=== PATIENT | female | born 2005 | race Caucasian/White ===

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

== ENCOUNTER 2025-04-06 10:37 | Emergency (ER) | payer BC, SELFPAY ==
[2025-04-06 10:54] VITALS: BP 122/86; PULSE 87; RESP 16; TEMP 36.3; O2SAT 99
--- NOTE | 2025-04-06 11:06 | ED.URI ---
HPI - URI/Sore Throat General Chief Complaint: Upper Respiratory Infection Stated Complaint: SORE THROAT/COUGH/SINUS CONGSTION/EARS Time Seen by Provider: 04/06/25 11:02 Source: patient and RN notes reviewed Mode of arrival: ambulatory Limitations: no limitations History of Present Illness HPI Narrative: 20-year-old female patient presents today with a 2-3 day history of sore throat, nasal congestion, bilateral ear pain, dry cough. Currently rates her pain 5/10 and has been taking DayQuil and Tylenol without much relief. No history of asthma. Patient vapes occasionally. No known sick contacts. Related Data Allergies Allergy/AdvReac Type Severity Reaction Status Date / Time No Known Allergies Allergy Verified 04/06/25 10:42 [facility] Past Medical History Medical History No pertinent past medical history Surgical History Surgical History History of tonsillectomy Social History Social History Smoking status: Never smoker Alcohol intake: never Substance use: never Living arrangements: with family Comments At time of signature, I have reviewed and agree with nursing past medical, surgical, social and family history unless otherwise noted. Please see nursing chart for further information. There is no relevant family history pertinent to the presenting complaint Exam Narrative: GENERAL: Ill-appearing, well-nourished, and in no acute distress. HEAD: Normocephalic, atraumatic. EYES: EOMI. No redness or drainage. Conjunctivae normal. ENT: Mucous membranes pink and moist. Nares congested. No rhinorrhea. TMs normal bilaterally. Throat mildly erythematous without edema or exudate. Uvula midline. NECK: Normal AROM. Supple. No lymphadenopathy. CHEST: No respiratory distress. Clear to auscultation. HEART: Regular rate and rhythm. No murmur appreciated. EXTREMITIES: Normal range of motion. No edema. SKIN: Warm, dry, no rash. Capillary refill normal. Normal skin turgor. NEURO: No focal deficits. Alert and oriented x3. Gait steady. PSYCH: Normal affect. No signs of depression or anxiety. Course Course Level of Care: Express Care Visit Vital Signs Vital signs: Vital Signs Temperature 97.4 F L 04/06/25 10:54 Pulse Rate 87 04/06/25 10:54 Respiratory Rate 16 04/06/25 10:54 Blood Pressure 122/86 04/06/25 10:54 Pulse Oximetry 99 04/06/25 10:54 Temperature 97.4 F L 04/06/25 10:54 Pulse Rate 87 04/06/25 10:54 Respiratory Rate 16 04/06/25 10:54 Blood Pressure 122/86 04/06/25 10:54 Pulse Oximetry 99 04/06/25 10:54 Reviewed [facility] Narrative Medical decision making narrative: 20-year-old female patient presents today with a 2-3 day history of sore throat, nasal congestion, bilateral ear pain, dry cough. Currently rates her pain 5/10 and has been taking DayQuil and Tylenol without much relief. No history of asthma. Patient vapes occasionally. No known sick contacts. Upon exam, patient is mildly ill appearing with nasal congestion and mildly erythematous throat. COVID negative, influenza negative, rapid strep negative. Strep culture pending. Symptoms likely viral in etiology. Discussed [id number] medication use and duration of illness. No prescription medications indicated at this time. Anticipatory guidance given. Patient agrees with plan. Vital signs stable. Anticipatory guidance given. Differential Diagnosis Differential Diagnosis: URI, AOM, pharyngitis, strep throat, influenza, COVID-19 Lab Data [facility] Lab Attestation statement: I personally reviewed the patient's lab results. Lab results narrative: Rapid strep negative, influenza negative, COVID negative Critical Care Time Critical Care Time Critical Care Time: No Discharge Plan Discharge Clinical Impression: Upper respiratory infection Qualifiers: URI type: unspecified URI Qualified Code(s): J06.9 - Acute upper respiratory infection, unspecified Patient Disposition: Home Condition: Stable Instructions: Upper Respiratory Infection (DC) Additional Instructions: COVID-19, influenza, and rapid strep swab were negative today at [facility]. You will be notified in a few days if the culture comes back positive for strep, and appropriate antibiotics will be called in for you at that time. Your symptoms are likely due to a viral illness, which is not treated with antibiotics. Viral symptoms can be present for up to 7-10 days. Take Tylenol or ibuprofen for fever or pain. Rest and stay hydrated. Follow up with your PCP in 7 days if symptoms are not improving. Go to the ER immediately if you have any difficulty breathing or swallowing. Patient Language: Nepali Follow-up/Referrals: PHYSICIAN,EMBOSSING MACHINE OPERATOR [Primary Care Provider, Internal Medicine] Stand Alone Forms: Work/School Release IP Time of Disposition: 11:11
[2025-04-06 11:08] LABS: EDCOVIDSCREEN Negative (Negative); EDINFLUASCREEN Negative (Negative); EDINFLUBSCREEN Negative (Negative); EDSTREPNEGPOS1 Negative (Negative)
== END 2025-04-06 11:15 | disposition home or self-care (01) ==
PROVIDERS: Emergency Provider Nurse Practitioner
DX: J06.9 Acute upper respiratory infection, unspecified (principal); Z20.822 Contact with and (suspected) exposure to COVID-19
CPT/HCPCS: 87081; 87426; 87804; 87880; 99213; G0463